=== PATIENT | male | born 1990 | race Caucasian/White ===

== ENCOUNTER 2023-10-13 20:18 | Emergency (ER) | payer OTHER ==
[~2023-10-13] VITALS: Ht 180.3 cm; Wt 136.0 kg
[2023-10-13 22:02] VITALS: BP 135/80
== END 2023-10-13 22:02 | disposition home or self-care (01) | DRG 605 ==
LOC: ED 20:18
DX: S61.012A Laceration without foreign body of left thumb without damage to nail, initial encounter (principal); W26.8XXA Contact with other sharp object(s), not elsewhere classified, initial encounter